=== PATIENT | female | born 1955 | race Caucasian/White ===

== ENCOUNTER 2017-02-20 08:04 | Day surgery (SDC) ==
[2017-02-20] MEDS ORDERED: VERSED ONE (09:50)
[2017-02-20] MEDS ORDERED: DIPRIVAN 20 ML VIAL IVP ONE (09:50)
[2017-02-20 10:59] VITALS: BP 110/76; TEMP 98.7
--- NOTE | 2017-02-21 11:59 | OP ---
INDICATIONS FOR PROCEDURE: 61-year-old female with a history of adenomatous polyps on colonoscopy a little over three years ago presents for colonoscopy exam. MEDICATIONS: SEE ANESTHESIA NOTES. PROCEDURE: COLONOSCOPY, SNARE POLYPECTOMY. REPORT: The risks, benefits, alternatives and limitations were discussed in detail with the patient. Informed consent was obtained. After adequate sedation was achieved, a digital rectal exam revealed good tone, no masses. The colonoscope was introduced into the rectum and advanced under direct visual guidance to the cecum. The cecum was identified by the appendiceal orifice and IC valve. At the junction of the cecum and ascending colon, there was a sessile 7 to 8 mm polyp that I removed by snare technique. I then slowly withdrew the scope in a circumferential manner examining the mucosa quite carefully. I looked on the proximal and distal side of folds and flexures as best as possible. I was able to retroflex the scope in the right colon and left colon to increase visualization. In the sigmoid colon there was a sessile 8 or 9 mm polyp that I removed by snare technique. There is a mild amount of a small mouth diverticula scattered throughout the sigmoid. No other abnormalities were noted including on retroflex view of the anal canal. The prep was good. The withdrawal time was 12 minutes and 21 seconds. The patient tolerated the procedure well with stable vital signs and pulse oximetry throughout. IMPRESSION: 1. TWO (2) POLYPS REMOVED. 2. DIVERTICULOSIS. RECOMMENDATIONS: 1. High fiber diet. 2. Office visit as needed. 3. Await polyp pathology. If everything is benign as expected, I recommend repeat colonoscopy examination again in 3 years, sooner if there are signs or symptoms to indicate otherwise. CC: DR. STEPHEN SAUCEDO
== END 2017-02-20 11:08 | disposition home or self-care (01) ==
LOC: SURG 08:04
PROVIDERS: ATTEND Internal Medicine Gastroenterology
DX: Z09 Encounter for follow-up examination after completed treatment for conditions other than malignant neoplasm (principal); Z86.010 Personal history of colon polyps; D12.0 Benign neoplasm of cecum; D12.5 Benign neoplasm of sigmoid colon; K57.30 Diverticulosis of large intestine without perforation or abscess without bleeding